=== PATIENT | female | born 1955 | race Caucasian/White ===

== ENCOUNTER 2017-06-09 14:42 | Emergency (ER) | payer OTHER ==
--- NOTE | 2017-06-09 15:34 | CPEKG ---
Heart Rate: 63 RR Interval: 952 P-R Interval: 176 QRSD Interval: 94 QT Interval: 420 QTC Interval: 430 P [place]: 70 QRS [place]: 66 T Wave [place]: 66 EKG Severity - NORMAL ECG - EKG Impression: SINUS RHYTHM Electronically Signed By: Arlin Blackwood 10-Jun-2017 00:54:09
[2017-06-09 15:38] LABS: PLATELET COUNT 251 10^3/uL (150-400)
--- NOTE | 2017-06-09 17:20 | EDPHY ---
HPI/HX/ROS/PE/MDM Narrative: CHIEF COMPLAINT: Episodes of chest discomfort HISTORY OF PRESENT ILLNESS: The patient is a 61 y/o female with a history of hypothyroidism complaining of three episodes of bilateral arm tingling and numbness progressing into chest discomfort, onset 1 month ago. The episodes occur in the morning and pass within 20 seconds. The first episode occurred one month ago while up at night helping her mother to the restroom. She sat down and the symptoms passed within a minute or two. The next day she notes a very slight chest discomfort. Two weeks ago, she had the second episode which was very slight while getting dressed in the morning. Yesterday morning, she was again helping her mother to the bathroom at night and had another episode, similar to the first but stronger. She had lingering chest discomfort for about an hour after. She reports feeling slightly "wheezy" but often feels this way in spring. Today, she called her PCP (Dr. Frost) and was directed to the ED. She reports associated shortness of breath when talking on the phone but denies shortness of breath or exacerbation of symptoms with exertion. She denies hypertension, hypercholesterolemia, smoking, family history of cardiac conditions, or any other risk factors. She reports being stressed. No fever, chills, chest pain, palpitations, vomiting, diarrhea, urinary complaints, headache, lightheadedness. REVIEW OF SYSTEMS: Aside from elements discussed in the HPI, a comprehensive 10-point review of systems was reviewed and is negative. PAST MEDICAL HISTORY: Hyperthyroidism SOCIAL HISTORY: Lives in [place], employed, nonsmoker VITAL SIGNS: Reviewed by me GENERAL: Well-developed, well-nourished, resting comfortably in no respiratory distress. HEENT: Atraumatic. Eyes: No icterus, no injection. Mouth: moist mucous membranes. No erythema or lesions. Neck: supple with no adenopathy. LUNGS: Clear to auscultation bilaterally, no wheezes, rhonchi or rales. CARDIAC: Regular rate and rhythm, no rubs, murmurs or gallops. ABDOMEN: Soft, nontender, nondistended, bowel sounds normal. BACK: No CVA tenderness. EXTREMITIES: No trauma. No edema. Range of motion is normal throughout. NEURO: Alert and oriented, grossly nonfocal. SKIN: Warm and dry, no rash. PSYCHIATRIC: Normal mentation, no agitation. ED Course: 12-LEAD EKG: Please see the full report in [facility]. My interpretation: Normal sinus rhythm The patient presents with several short episodes of chest discomfort. Her EKG is normal. Her exam is normal. Plan for chest X-ray, troponin, CBC, and BNP. 5:45 PM- Her chest X-ray is normal. Labs are unremarkable. Troponin is negative. Her heart score is 1, age only. We discussed the heart score and patient's evaluation. I believe she is safe to be discharged to follow up with Dr. Singh regarding risk stratification. She is reassured by these findings. She understands reasons to return to the emergency department and understands that further evaluation for cardiac cause may be needed. The patient agrees to this course of action. MDM: After history and physical examination, the differential for chest pain was considered, including but not limited to, myocardial ischemia, acute coronary syndrome, pulmonary embolus, chest wall pain, pleural inflammation and pulmonary infectious causes. - Data Points Imaging Results: CXR: Impression: No acute pulmonary disease. Dictated By: Rigo Jasso MD Imaging: I viewed and interpreted images myself Laboratory Results: Laboratory Results 06/09/17 15:24 06/09/17 15:24 General Time Seen by Provider: 06/09/17 16:02 Initial Vital Signs: Initial Vital Signs Temperature (C) 37.2 C 06/09/17 14:47 Heart Rate 79 06/09/17 14:47 Respiratory Rate 18 06/09/17 14:47 Blood Pressure 120/81 H 06/09/17 14:47 O2 Sat (%) 97 06/09/17 14:47 O2 Delivery Mode Room Air Allergies/Adverse Reactions: latex Allergy (Verified 06/09/17 14:45) Home Medications: Medication Instructions Recorded Synthroid 06/09/17 Departure - Departure Disposition: Home, Routine, Self-Care Clinical Impression: Chest discomfort Condition: Good Instructions: Chest Pain (ED) Additional Instructions: 1. Follow-up with your primary care provider tomorrow to schedule an urgent stress test. 2. Return to the Emergency Department for any worsening of condition. Referrals: Kayley Frost MD [Primary Care Provider] - As per Instructions Report Scribed for: Arlin Blackwood Report Scribed by: Karen Melchor Date of Report: 06/09/17 Time of Report: 18:44 Physician Review and Approval Statement: Portions of this note were transcribed by a medical coding specialist. I personally performed a history, physical exam, medical decision making, and confirmed accuracy of information the transcribed note.
[2017-06-09 19:04] VITALS: BP 118/79
== END 2017-06-09 19:05 | disposition home or self-care (01) ==
DX: R07.89 Other chest pain (principal); Z91.040 Latex allergy status